=== PATIENT | male | born 2000 | race Caucasian/White ===

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

== ENCOUNTER 2022-03-06 12:07 | Emergency (ER) | payer OTHER ==
[~2022-03-06] VITALS: Ht 175.3 cm; Wt 93.9 kg
[2022-03-06 12:18] VITALS: BP 143/68
--- NOTE | 2022-03-06 12:30 | NUR ---
21 Y/O MALE BIB MOTHER C/O OF REDNESS IN THE SCLERA X3DAYS. DENIES ANY PAIN, DISCHARGE, TRAUMA/INJURY. DENIES ANY BLURRING OF VISION NKA PMH: DENIES
--- NOTE | 2022-03-06 12:33 | NUR ---
PA HARRIS AT PT SIDE FOR EVAL
--- NOTE | 2022-03-06 12:47 | NUR ---
PT LEFT W/O DC PAPERS
== END 2022-03-06 12:47 | disposition left against medical advice (07) ==
LOC: MED 12:07
DX: H11.30 Conjunctival hemorrhage, unspecified eye (principal)
CPT/HCPCS: 99281

== ENCOUNTER 2022-05-12 16:08 | Emergency (ER) | payer OTHER ==
[~2022-05-12] VITALS: Ht 188 cm; Wt 90.7 kg
[2022-05-12 16:35] VITALS: BP 130/90
--- NOTE | 2022-05-12 16:47 | NUR ---
PT AMB TO BED 11.
--- NOTE | 2022-05-12 17:03 | NUR ---
[employer] AT BEDSIDE
--- NOTE | 2022-05-12 17:11 | NUR ---
FLU AND IDRIS SWABS COLLECTED AND WALKED TO LAB
--- NOTE | 2022-05-12 17:16 | NUR ---
21/M PRESENTS TO ED STATING HE WAS REFERRED FROM CLINIC FOR CHEST X RAY TO RULE OUT PNUEMONIA. PATIENT C/O INTERMITTENT FEVERS, COUGH AND SORE THROAT X3 DAYS. PATIENT STATES HE HAS BEEN TAKING TYLENOL, LAST DOSE 2 HOURS AGO, WITH SOME RELIEF. PATIENT DENIES CP, SOB OR RECENT SICK CONTACTS. PATIENTS TEMP UPON ARRIVAL TO ED 97.9.
[2022-05-12] MEDS ORDERED: VIB100 PO (18:24)
[2022-05-12 19:02] VITALS: BP 134/77
--- NOTE | 2022-05-12 19:03 | NUR ---
Patient discharged with v/s stable. Written and verbal after care instructions ABOUT INFLUENZA AND COMMUNITY ACQUIRED PNEUMONIA given and explained. Patient alert, oriented and verbalized understanding of instructions. Ambulatory with steady gait. All questions addressed prior to discharge. ID band removed. Patient advised to follow up with PMD. Rx of DOXYCYLINE HYCLATE given. Patient educated on indication of medication including possible reaction and side effects. Opportunity to ask questions provided and answered.
== END 2022-05-12 19:03 | disposition home or self-care (01) ==
LOC: MED 16:08
DX: J11.1 Influenza due to unidentified influenza virus with other respiratory manifestations (principal); J18.9 Pneumonia, unspecified organism; Z20.822 Contact with and (suspected) exposure to COVID-19
CPT/HCPCS: 71045; 87426; 87804; 99284; Q0092